=== PATIENT | male | born 1990 | race African-American/Black ===

== ENCOUNTER → 2025-01-30 | Outpatient (CLI) | payer OTHER | LOC: M RAD 16:55 | PROVIDERS: ATTEND Physician Assistant | DX: M25.532 Pain in left wrist (principal); M25.562 Pain in left knee ==

== ENCOUNTER → 2025-04-12 | Outpatient (CLI) | payer OTHER | LOC: M RAD 07:05 | PROVIDERS: ATTEND Physician Assistant | DX: M25.471 Effusion, right ankle (principal) ==

== ENCOUNTER → 2025-07-04 | Outpatient (CLI) | payer OTHER | LOC: M SOG 07:19 | PROVIDERS: ATTEND Neuromusculoskeletal Medicine, Sports Medicine | DX: M25.522 Pain in left elbow (principal) ==